=== PATIENT | female | born 1990 | race Hispanic/Latino ===

== ENCOUNTER 2019-03-19 20:46 | Emergency (ER) | payer BC ==
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
[2019-03-19] MEDS: ONDANSETRON INJ 4 MG/2 ML VIAL IV ONE ×2 (21:20→22:18)
--- NOTE | 2019-03-19 22:18 | CT ---
EXAM: CT Abdomen and Pelvis With Intravenous Contrast CLINICAL HISTORY: 28 years old Female; pain. TECHNIQUE: Axial computed tomography images of the abdomen and pelvis with intravenous contrast. Sagittal and coronal reformatted images were created and reviewed. This CT exam was performed using one or more of the following dose reduction techniques: automated exposure control, adjustment of the mA and/or kV according to patient size, and/or use of iterative reconstruction technique. CONTRAST: 100 mL Optiray 350. COMPARISON: No relevant prior studies available. FINDINGS: LUNG BASES: Minimal dependent atelectasis in the lung bases, left greater than right. ABDOMEN: LIVER: Liver normal in size and density without focal abnormality seen. GALLBLADDER AND BILE DUCTS: Normal without CT evidence of acute cholecystitis. PANCREAS: Unremarkable. No mass. No ductal dilation. SPLEEN: No splenomegaly or focal abnormality seen. ADRENALS: Unremarkable. No mass. KIDNEYS AND URETERS: No renal/ureteral stone or hydroureteronephrosis seen bilaterally. No apparent renal mass. STOMACH AND BOWEL: Significant fecal retention without apparent bowel obstruction. Postsurgical changes consistent with gastric banding. Associated hiatal hernia. PELVIS: APPENDIX: No CT findings to suggest acute appendicitis. BLADDER: No urinary bladder wall thickening or filling defect seen. REPRODUCTIVE: Somewhat complex cyst measuring up to 3.3 cm in the left ovary and somewhat complex cyst measuring up to 3.7 cm in the right ovary versus two smaller adjacent complex cysts. Uterus prominent and somewhat heterogeneous density which may relate to fibroid change. Intrauterine device present. ABDOMEN and PELVIS: INTRAPERITONEAL SPACE: Small amount of free fluid noted in the dependent pelvis. BONES/JOINTS: No acute bony normality seen. Moderate chronic bony degenerative changes in the visualized thoracolumbar spine. SOFT TISSUES: No acute abnormality seen. VASCULATURE: No acute abnormality seen. LYMPH NODES: No pathologic lymphadenopathy identified. IMPRESSION: - Somewhat complex cyst measuring up to 3.3 cm in the left ovary and somewhat complex cyst measuring up to 3.7 cm in the right ovary versus two smaller adjacent complex cysts. Associated small amount of free fluid noted in the dependent pelvis. ACR White Paper guidelines (Eliazar et. al. JACR 2013; 10(9):675-681) suggest pelvic ultrasound for further evaluation. - Significant fecal retention without apparent bowel obstruction. - Postsurgical changes consistent with gastric banding. Associated hiatal hernia. - Possible fibroid uterus. Thank you for allowing us to participate in the care of this patient. Electronically signed by: Cuba Hernandez MD 03/19/2019 10:16 PM [facility]
[2019-03-19 22:31] VITALS: O2SAT 100
[2019-03-19 22:32] VITALS: BP 117/77; TEMP 97.4
[2019-03-19] MEDS: ONDANSETRON ODT (ER DISP) 8 MG TAB PO ONE (22:33)
== END 2019-03-19 22:54 | disposition home or self-care (01) ==
LOC: ER 20:46
DX: R10.9 Unspecified abdominal pain (principal); R11.2 Nausea with vomiting, unspecified; K59.00 Constipation, unspecified; N83.201 Unspecified ovarian cyst, right side; N83.202 Unspecified ovarian cyst, left side; V49.88XA Car occupant (driver) (passenger) injured in other specified transport accidents, initial encounter; Y92.410 Unspecified street and highway as the place of occurrence of the external cause; Z91.040 Latex allergy status; Z88.2 Allergy status to sulfonamides
CPT/HCPCS: 74177; 80053; 81001; 81025; 85025; J2405